=== PATIENT | male | born 1990 | race Two or more races ===

== ENCOUNTER 2023-02-14 17:12 | Emergency (ER) | payer OTHER ==
[~2023-02-14] VITALS: Ht 170.2 cm; Wt 80.0 kg
[2023-02-14 19:56] VITALS: TEMP 98
[2023-02-14] MEDS ORDERED: IBUPROFEN 600 MG TABLET PO ONE (22:30)
[2023-02-14] MEDS ORDERED: ACETAMINOPHEN 500 MG TABLET PO ONE (22:30)
[2023-02-14 23:18] VITALS: BP 112/71; PULSE 88; RESP 18
== END 2023-02-14 23:22 | disposition home or self-care (01) ==
LOC: EMS 17:15
DX: S20.211A Contusion of right front wall of thorax, initial encounter (principal); W19.XXXA Unspecified fall, initial encounter; Y93.69 Activity, other involving other sports and athletics played as a team or group; Y92.89 Other specified places as the place of occurrence of the external cause; Y99.8 Other external cause status
CPT/HCPCS: 71101; 99283